=== PATIENT | male | born 1950 | race Hispanic/Latino ===

== ENCOUNTER 2017-01-30 10:24 | Day surgery (SDC) | payer MEDICARE ==
[2017-01-30] MEDS ORDERED: Lactated Ringer's 500 ML IV ONE (11:04)
[2017-01-30] MEDS ORDERED: Propofol 10 mg/ml Inj (20 ML) ONE (11:14)
[2017-01-30 11:49] VITALS: TEMP 98
[2017-01-30 12:01] VITALS: BP 112/62; PULSE 65; RESP 19; O2SAT 99
== END 2017-01-30 12:19 | disposition home or self-care (01) ==
LOC: H.ENDO 10:24
PROVIDERS: ATTEND Internal Medicine Gastroenterology
DX: D64.9 Anemia, unspecified (principal); K57.30 Diverticulosis of large intestine without perforation or abscess without bleeding; K64.0 First degree hemorrhoids; K29.70 Gastritis, unspecified, without bleeding; K31.7 Polyp of stomach and duodenum
CPT/HCPCS: 43239; 45378; 88305; J2001; J2704; J7120